=== PATIENT | female | born 1995 | race Caucasian/White ===

== ENCOUNTER 2017-04-25 17:07 | Observation (INO) | payer BC ==
--- NOTE | 2017-04-25 17:18 | EDM.PDOC ---
<Scooter Cristobal - Last Filed: 04/25/17 21:07> ED HPI GENERAL MEDICAL PROBLEM - General Chief Complaint: Abdominal Pain Stated Complaint: SEVERE ABDOMANAL PAIN Time Seen by Provider: 04/25/17 17:17 - History of Present Illness INITIAL COMMENTS - FREE TEXT/NARRATIVE: 22-year-old female presents emergency room with abdominal pain. This pain started this morning more severe than normal. Yesterday she had some increasing pain but seemed to improve last evening. Today the pain worsened she' s had 2 vomiting episodes. Yesterday she had a stool slightly looser than normal not mucousy or bloody but she wouldn't call it diarrhea. Patient denies any fevers or chills. Patient has had stomach problems she response to a gluten- free diet but blood tests did not necessarily confirm celiac disease. The patient had her gallbladder removed at a young age. She had a colonoscopy and EGD done this last summer according to the patient the biopsies were normal but some of the tissue looked abnormal during the endoscopy Abdomen Pain Score (Numeric/FACES): 9 - Related Data Allergies Allergy/AdvReac Type Severity Reaction Status Date / Time cefaclor [From Ceclor] Allergy Hives Verified 04/25/17 17:19 Sulfa (Sulfonamide Allergy Hives Verified 04/25/17 17:19 Antibiotics) sulfamethoxazole Allergy Hives Verified 04/25/17 17:19 [From Bactrim] trimethoprim [From Bactrim] Allergy Hives Verified 04/25/17 17:19 Home Meds: Home Meds Control 1 tab PO DAILY 04/25/17 [History] ED ROS GENERAL - Review of Systems Review Of Systems: See Below Constitutional: Reports: Chills. Denies: Fever HEENT: Reports: No Symptoms Respiratory: Reports: No Symptoms Cardiovascular: Reports: No Symptoms GI/Abdominal: Reports: Abdominal Pain, Nausea, Vomiting. Denies: Constipation, Diarrhea : Denies: Dysuria, Frequency Musculoskeletal: Reports: No Symptoms Skin: Reports: No Symptoms Neurological: Reports: No Symptoms Psychiatric: Reports: Anxiety. Denies: Mood Lability, Suicidal Ideation ED EXAM, GI/ABD - Physical Exam Exam: See Below Exam Limited By: No Limitations General Appearance: Mild Distress (The discomfort) Respiratory/Chest: No Respiratory Distress, Normal Breath Sounds GI/Abdominal: Hypoactive Bowel Sounds (Her bowel sounds are slightly diminished however she's been pressing on her abdomen prior to the exam), Other (Patient has significant tenderness in the epigastric region to a lesser degree in the right and left upper quadrants no right lower quadrant discomfort no left lower quadrant discomfort she has some periumbilical discomfort). No: Distention, Guarding, Rebound, Rigidity Back Exam: Normal Inspection. No: CVA Tenderness (L), CVA Tenderness (R) Extremities: Normal Inspection, No Pedal Edema Neurological: Alert, Oriented, Normal Cognition Psychiatric: Normal Affect Course - Vital Signs Last Recorded V/S: Last Vital Signs Temp 97.7 F 04/25/17 17:25 Pulse 59 L 04/25/17 17:25 Resp 20 04/25/17 17:25 BP 126/81 04/25/17 17:25 Pulse Ox 100 04/25/17 17:25 - Orders/Labs/Meds Orders: Active Orders 24 hr Category Date Time Status Abdomen Pelvis w Cont [CT] Stat Exams 04/25/17 19:52 Taken Sodium Chloride 0.9% [Normal Saline] 1,000 ml Med 04/25/17 23:21 Active IV ONETIME Sodium Chloride 0.9% [Normal Saline] 1,000 ml Med 04/25/17 23:27 Active IV ONETIME Sodium Chloride 0.9% [Saline Flush] Med 04/25/17 20:06 Active 10 ml FLUSH ONETIME PRN Medication Orders Sodium Chloride (Normal Saline) 1,000 mls @ 1,000 mls/hr IV ONETIME ONE Stop: 04/26/17 00:20 Last Admin: 04/25/17 23:27 Dose: 1,000 mls/hr Sodium Chloride (Normal Saline) 1,000 mls @ 1,000 mls/hr IV ONETIME ONE Stop: 04/26/17 00:26 Sodium Chloride (Saline Flush) 10 ml FLUSH ONETIME PRN PRN Reason: IV FLUSH Last Admin: 04/25/17 21:28 Dose: 10 ml Labs: Laboratory Tests 04/25/17 04/25/17 04/25/17 Range/Units 17:20 17:20 18:30 WBC 11.07 H (3.98-10.04) K/mm3 RBC 5.06 (3.98-5.22) M/mm3 Hgb 15.6 (11.2-15.7) gm/L Hct 45.6 H (34.1-44.9) % MCV 90.1 (79.4-94.8) fl MCH 30.8 (25.6-32.2) pg MCHC 34.2 (32.2-35.5) g/dl RDW Std Deviation 40.8 (36.4-46.3) fL Plt Count 263 (182-369) K/mm3 MPV 10.4 (9.4-12.3) fl Neutrophils % (Manual) 65 H (40-60) % Band Neutrophils % 0 (0-10) % Lymphocytes % (Manual) 26 (20-40) % Atypical Lymphs % 0 % Monocytes % (Manual) 6 (2-10) % Eosinophils % (Manual) 3 (0.7-5.8) % Basophils % (Manual) 0 L (0.1-1.2) Platelet Estimate Adequate RBC Morph Comment Normal Sodium 138 (136-145) mEq/L Potassium 3.2 L (3.5-5.1) mEq/L Chloride 101 (98-107) mEq/L Carbon Dioxide 30 (21-32) mEq/L Anion Gap 10.2 (5-15) BUN 12 (7-18) mg/dL Creatinine 1.1 H (0.55-1.02) mg/dL Est Cr Clr Drug Dosing 77.55 mL/min Estimated GFR (MDRD) > 60 (>60) mL/min BUN/Creatinine Ratio 10.9 L (14-18) Glucose 105 (74-106) mg/dL Calcium 9.3 (8.5-10.1) mg/dL Total Bilirubin 0.3 (0.2-1.0) mg/dL AST 22 (15-37) U/L ALT 32 (14-59) U/L Alkaline Phosphatase 107 (46-116) U/L Total Protein 8.2 (6.4-8.2) g/dl Albumin 4.2 (3.4-5.0) g/dl Globulin 4.0 gm/dL Albumin/Globulin Ratio 1.1 (1-2) Lipase 129 (73-393) U/L Urine Color (Yellow) Urine Appearance (Clear) Urine pH (5.0-8.0) Ur Specific [place] (1.005-1.030) Urine Protein (Negative) Urine Glucose (UA) (Negative) Urine Ketones (Negative) Urine Occult Blood (Negative) Urine Nitrite (Negative) Urine Bilirubin (Negative) Urine Urobilinogen (0.2-1.0) Ur Leukocyte Esterase (Negative) Urine RBC (0-5) /hpf Urine WBC (0-5) /hpf Ur Epithelial Cells (0-5) /hpf Amorphous Sediment (NOT SEEN) /hpf Urine Bacteria (FEW) /hpf Urine Mucus (FEW) /hpf Urine HCG, Qual Negative (NEGATIVE) 04/25/17 Range/Units 18:30 WBC (3.98-10.04) K/mm3 RBC (3.98-5.22) M/mm3 Hgb (11.2-15.7) gm/L Hct (34.1-44.9) % MCV (79.4-94.8) fl MCH (25.6-32.2) pg MCHC (32.2-35.5) g/dl RDW Std Deviation (36.4-46.3) fL Plt Count (182-369) K/mm3 MPV (9.4-12.3) fl Neutrophils % (Manual) (40-60) % Band Neutrophils % (0-10) % Lymphocytes % (Manual) (20-40) % Atypical Lymphs % % Monocytes % (Manual) (2-10) % Eosinophils % (Manual) (0.7-5.8) % Basophils % (Manual) (0.1-1.2) Platelet Estimate RBC Morph Comment Sodium (136-145) mEq/L Potassium (3.5-5.1) mEq/L Chloride (98-107) mEq/L Carbon Dioxide (21-32) mEq/L Anion Gap (5-15) BUN (7-18) mg/dL Creatinine (0.55-1.02) mg/dL Est Cr Clr Drug Dosing mL/min Estimated GFR (MDRD) (>60) mL/min BUN/Creatinine Ratio (14-18) Glucose (74-106) mg/dL Calcium (8.5-10.1) mg/dL Total Bilirubin (0.2-1.0) mg/dL AST (15-37) U/L ALT (14-59) U/L Alkaline Phosphatase (46-116) U/L Total Protein (6.4-8.2) g/dl Albumin (3.4-5.0) g/dl Globulin gm/dL Albumin/Globulin Ratio (1-2) Lipase (73-393) U/L Urine Color Light yellow (Yellow) Urine Appearance Clear (Clear) Urine pH 8.5 H (5.0-8.0) Ur Specific [place] 1.015 (1.005-1.030) Urine Protein Negative (Negative) Urine Glucose (UA) Negative (Negative) Urine Ketones Negative (Negative) Urine Occult Blood Negative (Negative) Urine Nitrite Negative (Negative) Urine Bilirubin Negative (Negative) Urine Urobilinogen 0.2 (0.2-1.0) Ur Leukocyte Esterase Trace H (Negative) Urine RBC 0-5 (0-5) /hpf Urine WBC 0-5 (0-5) /hpf Ur Epithelial Cells 5-10 H (0-5) /hpf Amorphous Sediment Few H (NOT SEEN) /hpf Urine Bacteria Moderate H (FEW) /hpf Urine Mucus Few (FEW) /hpf Urine HCG, Qual (NEGATIVE) Meds: Medications Generic Name Dose Route Start Last Admin Trade Name Freq PRN Reason Stop Dose Admin Sodium Chloride 1,000 mls @ 1,000 mls/hr 04/25/17 23:21 04/25/17 23:27 Normal Saline IV 04/26/17 00:20 1,000 mls/hr ONETIME ONE Administration Sodium Chloride 1,000 mls @ 1,000 mls/hr 04/25/17 23:27 Normal Saline IV 04/26/17 00:26 ONETIME ONE Sodium Chloride 10 ml 04/25/17 20:06 04/25/17 21:28 Saline Flush FLUSH 10 ml ONETIME PRN Administration IV FLUSH Discontinued Medications Generic Name Dose Route Start Last Admin Trade Name Freq PRN Reason Stop Dose Admin Al Hydroxide/Mg Hydroxide 30 0 ml 04/25/17 17:56 04/25/17 18:25 ml/ Lidocaine HCl 15 ml PO 04/25/17 17:57 45 ml ONETIME ONE Administration Diatrizoate Meglum/Diatrizoate Sod 120 ml 04/25/17 20:06 04/25/17 21:27 Gastrografin 37% PO 04/25/17 20:07 90 ml ONETIME ONE Administration Hydromorphone HCl 0.5 mg 04/25/17 19:09 04/25/17 19:10 Dilaudid IVPUSH 04/25/17 19:10 0.5 mg ONETIME STA Administration Hydromorphone HCl Confirm 04/25/17 19:10 04/25/17 19:21 Dilaudid Administered 04/25/17 19:11 Not Given Dose 0.5 mg .ROUTE .STK-MED ONE Hydromorphone HCl 0.25 mg 04/25/17 19:52 04/25/17 20:08 Dilaudid IVPUSH 04/25/17 19:53 0.25 mg ONETIME ONE Administration Hydromorphone HCl 1 mg 04/25/17 21:42 04/25/17 21:48 Dilaudid IVPUSH 04/25/17 21:43 1 mg ONETIME ONE Administration Hyoscyamine 0.125 mg 04/25/17 18:45 04/25/17 18:49 Hyomax-Sl SL 04/25/17 18:46 0.125 mg ONETIME ONE Administration Sodium Chloride 1,000 mls @ 1,000 mls/hr 04/25/17 22:16 04/25/17 22:19 Normal Saline IV 04/25/17 23:15 1,000 mls/hr ONETIME ONE Administration Iopamidol 100 ml 04/25/17 20:06 04/25/17 21:28 Isovue-300 (61%) IVPUSH 04/25/17 20:07 80 ml ONETIME ONE Administration Metoclopramide HCl 10 mg 04/25/17 22:44 04/25/17 22:49 Reglan IVPUSH 04/25/17 22:45 10 mg ONETIME ONE Administration Ondansetron HCl 4 mg 04/25/17 17:56 04/25/17 18:00 Zofran IVPUSH 04/25/17 17:57 4 mg ONETIME ONE Administration Ondansetron HCl 4 mg 04/25/17 21:18 04/25/17 21:38 Zofran IVPUSH 04/25/17 21:19 4 mg ONETIME ONE Administration - Re-Assessments/Exams Free Text/Narrative Re-Assessment/Exam: 04/25/17 19:57 Patient had no improvement with the GI cocktail we tried Levsin this did not help. She had some improvement with Dilaudid but didn't really like to wait made her feel however we'll give a second dose of Dilaudid 0.25 initially she received 0.5 mg labs reviewed white count is 11,065% segs and no bands CBC is otherwise normal chemistry show potassium little low at 3.2 be ON 12 creatinine 1.1 urinalysis hCG is negative trace leukocyte Estrace microscopic shows moderate bacteria 5-10 epithelial cells 0-5 wbc's 0-5 RBCs this is probably a contaminated specimen at this point we'll proceed with a CAT scan after discussing the pros and cons of waiting with the patient. However this pain is much worse than anything she has had. Repeat abdominal exam a few minutes ago shows good bowel sounds significant discomfort in the epigastric and left upper quadrant milder discomfort in the right upper quadrant. 04/25/17 21:07 We'll give another dose of Zofran the patient vomited up a bunch of contrast a few minutes ago. She still working on a half a bottle. At this point I'm return the patient over to Dr. Irvin with changes shift further evaluation and disposition per Dr. Irvin. Departure - Departure Disposition: Refer to Observation Clinical Impression: Gastroenteritis Abdominal pain Qualifiers: Abdominal location: generalized Qualified Code(s): R10.84 - Generalized abdominal pain Vomiting Qualifiers: Vomiting type: unspecified Vomiting Intractability: non-intractable Nausea presence: with nausea Qualified Code(s): R11.2 - Nausea with vomiting, unspecified - Discharge Information Forms: ED Department Discharge - My Orders Last 24 Hours: My Active Orders 04/25/17 23:21 Sodium Chloride 0.9% [Normal Saline] 1,000 ml IV ONETIME 04/25/17 23:27 Sodium Chloride 0.9% [Normal Saline] 1,000 ml IV ONETIME - Assessment/Plan Last 24 Hours: My Active Orders 04/25/17 23:21 Sodium Chloride 0.9% [Normal Saline] 1,000 ml IV ONETIME 04/25/17 23:27 Sodium Chloride 0.9% [Normal Saline] 1,000 ml IV ONETIME <Delgado Irvin - Last Filed: 04/25/17 23:48> Course - Re-Assessments/Exams Free Text/Narrative Re-Assessment/Exam: 04/25/17 23:[address] Cristobal. The CT showed nonspecific changes of small pelvic fluid collection and scattered loops of small bowel with fluid accumulation. Infectious enteritis should remain in the differential. I examined the patient she still had pain. She has moderate generalized pain on exam. I gave her more dilaudid and she vomited after that. I gave her reglan to help with the nausea. She does not do well with pain meds. I ordered some IV fluids of NS. The first liter is in and she is a little better but not good enough to go home. I feel she needs to be admitted. I called Dr Thao and he agreed to the admission. Departure - Departure Time of Disposition: 23:50 Condition: Good
[2017-04-25] MEDS ORDERED: Ondansetron 4 MG/2 ML SDV IVPUSH ONE ×2 (17:56→21:18)
[2017-04-25] MEDS ORDERED: Alum Hydrox/Mag Hydrox/Simeth 30 ML, Lidocaine 2% 15 ML PO ONE ×2 (17:56)
--- NOTE | 2017-04-25 18:41 | CR ---
Abdomen: Supine and upright views of the abdomen were obtained. Scattered gas within small bowel and colon is seen. This appears within normal limits at this time. No free air is seen. Surgical clips are seen from prior cholecystectomy. Bony structures are unremarkable. Impression: 1. Incidental findings. Diagnostic code #2
[2017-04-25] MEDS ORDERED: Hyoscyamine 0.125 MG Tab.SL SL ONE (18:45)
[2017-04-25] MEDS ORDERED: HYDROmorphone 0.5 MG/0.5 ML Syringe IVPUSH STA (19:09)
[2017-04-25] MEDS ORDERED: HYDROmorphone 0.5 MG/0.5 ML Syringe ONE (19:10)
[2017-04-25] MEDS ORDERED: HYDROmorphone 0.5 MG/0.5 ML Syringe IVPUSH ONE (19:52)
[2017-04-25] MEDS ORDERED: Iopamidol 612 MG/ML 100 ML Bottle IVPUSH ONE (20:06)
[2017-04-25] MEDS ORDERED: Sodium Chloride 0.9% 10 ML Syringe FLUSH PRN (20:06)
[2017-04-25] MEDS ORDERED: Diatrizoate Meglumine/Diatrizoate Sodium 37% 120 ML Bottle PO ONE (20:06)
[2017-04-25] MEDS ORDERED: HYDROmorphone 1 MG/ML Syringe IVPUSH ONE (21:42)
[2017-04-25] MEDS ORDERED: Sodium Chloride 0.9% 1,000 ML IV ONE ×3 (22:16→23:27)
[2017-04-25] MEDS ORDERED: Metoclopramide 10 MG/2 ML SDV IVPUSH ONE (22:44)
[2017-04-26] MEDS ORDERED: diphenhydrAMINE 50 MG/ML SDV IVPUSH ONE (00:53)
[2017-04-26] MEDS ORDERED: Sodium Chloride 0.9% 1,000 ML IV ONE (00:54)
[2017-04-26] MEDS ORDERED: Ondansetron 4 MG/2 ML SDV IVPUSH PRN (01:56)
[2017-04-26] MEDS ORDERED: Prochlorperazine 10 MG in Sodium Chloride 0.9% 50 ML IV PRN (01:57)
[2017-04-26] MEDS: NS + KCl 20mEq/L 1,000 ML IV SCH ×3 (02:33→13:21)
[2017-04-26] MEDS ORDERED: Acetaminophen 325 MG Tab PO PRN (06:51)
[2017-04-26] MEDS ORDERED: Promethazine 12.5 MG in Sodium Chloride 0.9% 50 ML IV PRN (06:51)
[2017-04-26] MEDS ORDERED: HYDROmorphone 1 MG/ML Syringe IVPUSH PRN (06:51)
[2017-04-26] MEDS ORDERED: Polyethylene Glycol 3350 Powder 17 GM Packet PO PRN (06:51)
[2017-04-26] MEDS ORDERED: Temazepam 15 MG Cap PO PRN (06:51)
[2017-04-26] MEDS ORDERED: LORazepam 2 MG/ML MDV IV PRN (06:51)
[2017-04-26] MEDS ORDERED: Bisacodyl 5 MG Tab PO PRN (06:51)
[2017-04-26] MEDS ORDERED: Acetaminophen/HYDROcodone 325-5 MG Tab PO PRN (06:51)
[2017-04-26] MEDS ORDERED: Albuterol/Ipratropium 3.0-0.5 MG/3 ML Neb Soln NEB PRN (06:51)
--- NOTE | 2017-04-26 06:51 | PCM.HP ---
H&P History of Present Illness - General Date of Service: 04/26/17 Admit Problem/Dx: Admission Diagnosis/Problem Admission Diagnosis/Problem Gastroenteritis Source of Information: Patient, Family, Provider, RN Notes Reviewed History Limitations: Reports: No Limitations - History of Present Illness Initial Comments - Free Text/Narative: This is a 22-year-old fairly healthy white female with no past medical history who comes to the emergency department with complains of severe abdominal pain that started yesterday morning. Her chief complaint is associated with nausea and vomiting. She also reports loose stool that is non-bloody and without mucus. Patient carries a history of chronic diarrhea. It is unclear however if she has a history of IBD/IBS or Celiac Disease but she is on gluten-free diet. Patient had EGD and colonoscopy done last July. The results were benign according to patient. She also had her gallbladder taken out right about the same period. She followed Dr. Ron for her GI complaints but has not gone in to follow-up with him since then. Her initial workup in the emergency department shows a CBC remarkable for WBC of 11.7, hematocrit of 45.6, neutrophils of 65%. Her chemistry is remarkable for potassium of 3.2, creatinine of 1.1. CRP is less than 0.2. UA is unimpressive for urinary tract infection. Abdominal x-ray shows no acute abnormal finding. Abdominal CT scan with contrast report reads mild amount of fluid within small bowel that is nonspecific and cannot exclude any symptoms of enteritis. Previous Cholecystectomy. Mild intrahepatic biliary duct dilatation. And free fluid within the pelvis most likely physiologic Patient was admitted last night for continued observation related to her abdominal pain. 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 but grew out of Gastrointestinal History: Reports: Irritable Bowel Syndrome, Other (See Below) Other Gastrointestinal History: celiac - Infectious Disease History Infectious Disease History: Reports: Chicken Pox - Past Surgical History HEENT Surgical History: Reports: Adenoidectomy, Tonsillectomy Respiratory Surgical History: Reports: None GI Surgical History: Reports: Cholecystectomy Social & Family History - Family History Family Medical History: Noncontributory - Tobacco Use Smoking Status *Q: Never Smoker Second Hand Smoke Exposure: No - Caffeine Use Caffeine Use: Reports: Coffee, Tea Other Caffeine Use: one a day - Recreational Drug Use Recreational Drug Use: No H&P Review of Systems - Review of Systems: Review Of Systems: See Below General: Reports: Chills, Weakness, Decreased Appetite. Denies: Fever HEENT: Reports: No Symptoms Pulmonary: Denies: Shortness of Breath Cardiovascular: Denies: Chest Pain, Palpitations, Dyspnea on Exertion, Edema, Lightheadedness Gastrointestinal: Reports: Abdominal Pain, Decreased Appetite, Flatus, Nausea. Denies: Vomiting Genitourinary: Reports: No Symptoms Musculoskeletal: Reports: No Symptoms Skin: Denies: Jaundice, Rash Psychiatric: Reports: Anxiety. Denies: Depression, Agitation, Hallucinations Neurological: Denies: Difficulty Walking, Weakness, Gait Disturbance Hematologic/Lymphatic: Reports: No Symptoms Immunologic: Reports: No Symptoms Exam - Exam Exam: See Below - Vital Signs Vital Signs: Last Vital Signs Temp 36.5 C 04/25/17 17:25 Pulse 59 L 04/25/17 17:25 Resp 20 04/25/17 17:25 BP 126/81 04/25/17 17:25 Pulse Ox 100 04/25/17 17:25 Weight: 61.507 kg - Exam General: Alert, Oriented, Cooperative, Mild Distress HEENT: Conjunctiva Clear, EACs Clear, EOMI, Hearing Intact, Mucosa Moist & [place] , Nares Patent, Normal Nasal Septum, Posterior Pharynx Clear, Pupils Equal, Pupils Reactive, TMs Clear Neck: Supple, Trachea Midline, +2 Carotid Pulse wo Bruit, Full Range of Motion Lungs: Clear to Auscultation, Normal Respiratory Effort Cardiovascular: Regular Rate, Regular Rhythm Abdomen: Soft, Tenderness, Hypoactive Bowel Sounds (right side). No: Organomegaly, Peritoneal Signs, Distention, Guarding, Rigidity, Rebound (Female) Exam: Deferred Rectal (Female) Exam: Deferred Back Exam: Normal Inspection, Decreased Range of Motion Extremities: Normal Inspection, Normal Pulses Peripheral Pulses: 3+: Posterior Tibial (L), Posterior Tibial (R), Dorsalis Pedis (L), Dorsalis Pedis (R) Skin: Warm, Dry, Intact Neuro Extensive - Mental Status: Oriented x3, Normal Cognition, Memory Intact Neuro Extensive - Motor, Sensory, Reflexes: CN II-XII Intact (limited but intact ), Normal Gait Psychiatric: Alert, Normal Affect, Normal Mood - Patient Data Result Diagrams: 04/25/17 17:20 04/25/17 17:20 *Q Meaningful Use (ADM) - VTE *Q VTE Criteria *Q: - Stroke *Q Stroke Criteria *Q: - AMI *Q AMI Criteria *Q: Problem List Initiated/Reviewed/Updated: Yes Orders Last 24hrs: Active Orders 24 hr Category Date Time Status Bedrest [RC] ASDIRECTED Care 04/26/17 01:47 Active NPO [Nothing Per Oral Diet] [DIET] Diet 04/26/17 Breakfast Active NS + KCl 20mEq/L [Normal Saline with 20 mEq KCl] 1,000 Med 04/26/17 02:15 Active ml IV ASDIRECTED Ondansetron [Zofran] Med 04/26/17 01:56 Active 4 mg IVPUSH Q6H PRN Prochlorperazine [Compazine] 10 mg Med 04/26/17 01:57 Active Sodium Chloride 0.9% [Normal Saline] 50 ml IV Q6H Code Status [Resuscitation Status] Routine Resus Stat 04/26/17 01:43 Ordered Medication Orders Prochlorperazine Edisylate 10 (mg/ Sodium Chloride) 52 mls @ 150 mls/hr IV Q6H PRN PRN Reason: Nausea/Vomiting Potassium Chloride/Sodium Chloride (Normal Saline With 20 Meq Kcl) 1,000 mls @ 200 mls/hr IV ASDIRECTED SELAM Last Admin: 04/26/17 02:33 Dose: 200 mls/hr Ondansetron HCl (Zofran) 4 mg IVPUSH Q6H PRN PRN Reason: Nausea Sodium Chloride (Saline Flush) 10 ml FLUSH ONETIME PRN PRN Reason: IV FLUSH Last Admin: 04/25/17 21:28 Dose: 10 ml Assessment/Plan Comment:: Assessment/Plan: Acute: Enteritis - Infectious vs Inflammatory - past medical hx is not clear at this time - Will start IV Levaquin/Zosyn and Prednisone - Celiac Diet Abdominal Pain - Moderate now - CT scan shows enteritis: infectious vs inflammatory - She is on gluten diet - She had EGD and Colonoscopy in the past w/ benign result - Unsure if she has IDB/IBS +/- Celiac Disease - Received initial treatment in ED - She is responding to dilaudid Nausea/Vomiting - 2/2 Above - PRN meds for symptomatic control Hx/o IBD/BDS vs Celiac Disease - No supported documentation - Seen Dr. Ron in the past - Will try to reach him S/p Cholecystectomy Plan: Admitted for Med-Surg floor last night Routine AM Labs Dietary consult Will try to reach Dr. Ron SW/CM for d/c planning
[2017-04-26] MEDS ORDERED: hydrALAZINE 20 MG/ML SDV IVPUSH PRN (06:58)
[2017-04-26] MEDS ORDERED: Metoprolol Tartrate 5 MG/5 ML SDV IVPUSH PRN (06:58)
[2017-04-26] MEDS ORDERED: HYDROmorphone 0.5 MG/0.5 ML Syringe IVPUSH PRN (07:03)
[2017-04-26 07:31] VITALS: BP 100/59
[2017-04-26] MEDS: metroNIDAZOLE/Normal Saline 500 MG in Premix Bag 1 BAG IV SCH ×2 (08:09→15:13)
[2017-04-26] MEDS: Saccharomyces Boulardii (Probiotic) 250 MG Cap PO SCH ×2 (08:10→15:14)
--- NOTE | 2017-04-26 08:31 | CT ---
CT abdomen and pelvis Technique: Multiple axial sections were obtained from above the dome of the diaphragm inferiorly through the pubic symphysis. Intravenous and oral contrast was utilized. Comparison: No previous study is available. Findings: Liver shows no focal parenchymal abnormality. Spleen appears within normal limits. No pericardial thickening is seen. Slight intrahepatic biliary duct dilatation is seen most likely residual from prior cholecystectomy. Kidneys shows contrast enhancement without hydronephrosis or mass. Pancreas appears within normal limits. Adrenal glands show no nodule. Aorta shows no aneurysmal dilatation. No bowel dilatation is seen. There is some fluid being seen within bowel. No bowel wall thickening is identified. There is a small amount of fluid within the pelvis which is most likely physiologic. No pelvic mass or adenopathy is seen. No free fluid is seen. Appendix is not seen with certainty. No inflammatory change is seen. Delayed images show contrast within the distal ureters and within the bladder. Bone window settings were reviewed which appear within normal limits. Impression: 1. Mild amount of fluid within small bowel which is nonspecific but please exclude any symptoms of enteritis. 2. Previous cholecystectomy. Mild intrahepatic biliary duct dilatation is seen likely residual from prior cholecystectomy. 3. Free fluid within the pelvis most likely physiologic. Diagnostic code #3 Agree with preliminary report issued by [facility] ([facility] preliminary report dictated on 04/25/17, 11:03 PM Central Time)
[2017-04-26] MEDS ORDERED: Levofloxacin/Dextrose 5%-Water 500 MG in Premix Bag 1 BAG IV SCH (09:00)
[2017-04-26] MEDS ORDERED: Scopolamine 1.5 MG Transdermal Patch TOP ONE (14:24)
--- NOTE | 2017-04-26 14:32 | PCM.DCSUM1 ---
Discharge Summary - Hospital Course Brief History: This is a 22-year-old fairly healthy white female with no past medical history who comes to the emergency department with complains of severe abdominal pain associatd with nausea and vomiting; was admitted for observation for medical management. - Discharge Data Discharge Date: 04/26/17 Discharge Disposition: Home, Self-Care 01 Condition: Good - Patient Summary/Data Operative Procedure(s) Performed: None Complications: None Consults: Consultations 04/26/17 06:53 Consult to Case Management [CONS] Routine Consult to Mental Health Consultant [CONS] Routine Consult to Allocations Clerk [CONS] Routine Hospital Course: She was primarily admitted for medical management of her abdominal pain. She carried a history of chronic diarrhea. However it is unclear whether she had history of IBD, IBS or celiac disease. She was seen in the past by Dr. Ron, GI specialist in [facility] for her symptoms. She had also undergone endoscopy and EGD back last year but with benign findings. Today family had requested for transfer to [facility]. I called [email or web address] [place] but it was felt she could be managed medically here locally. I offered transfer to [place] but they refused it. Sometime this afternoon patient left AMA. - Discharge Plan Home Medications: Home Meds Control 1 applic VAG ASDIRECTED 04/25/17 [History] Referrals: PCP,Not In Area [Primary Care Provider] - - Discharge Summary/Plan Comment DC Time >30 min.: No Discharge Summary/Plan Comment: Patient left AMA - General Info Date of Service: 04/26/17 Admission Dx/Problem (Free Text: Admission Diagnosis/Problem Admission Diagnosis/Problem Gastroenteritis Subjective Update: Follow Up - Review of Systems Systems Review Comment: Patient left AMA. - Patient Data Vitals - Most Recent: Last Vital Signs Temp 36.7 C 04/26/17 07:29 Pulse 60 04/26/17 07:29 Resp 14 04/26/17 07:29 BP 100/59 L 04/26/17 07:29 Pulse Ox 100 04/26/17 07:29 Weight - Most Recent: 61.507 kg I&O - Last 24 hours: Intake & Output 04/25/17 04/26/17 04/26/17 22:59 06:59 14:59 Intake Total 1297 Balance 1297 Lab Results - Last 24 hrs: Laboratory Results - last 24 hr 04/26/17 Range/Units 07:15 C-Reactive Protein < 0.2 (<1.0) mg/dL Med Orders - Current: Current Medications Acetaminophen (Tylenol) 650 mg PO Q4H PRN PRN Reason: Pain (Mild 1-3)/fever Hydrocodone Bitart/Acetaminophen ([place] 325-5 Mg) 1 tab PO Q4H PRN PRN Reason: Pain (moderate 4-6) Last Admin: 04/26/17 13:21 Dose: 1 tab Albuterol/Ipratropium (Duoneb 3.0-0.5 Mg/3 Ml) 3 ml NEB Q4H PRN PRN Reason: Shortness Of Breath/wheezing Bisacodyl (Dulcolax) 5 mg PO DAILY PRN PRN Reason: Constipation Hydralazine HCl (Apresoline) 20 mg IVPUSH Q4H PRN PRN Reason: Hypertension Hydromorphone HCl (Dilaudid) 0.25 mg IVPUSH Q2H PRN PRN Reason: Pain (severe 7-10) Prochlorperazine Edisylate 10 (mg/ Sodium Chloride) 52 mls @ 150 mls/hr IV Q6H PRN PRN Reason: Nausea/Vomiting Potassium Chloride/Sodium Chloride (Normal Saline With 20 Meq Kcl) 1,000 mls @ 200 mls/hr IV ASDIRECTED [facility] Last Admin: 04/26/17 13:21 Dose: 200 mls/hr Promethazine HCl 12.5 mg/ (Sodium Chloride) 50.5 mls @ 100 mls/hr IV Q6H PRN PRN Reason: Nausea/Vomiting Levofloxacin/Dextrose 500 mg/ (Premix) 100 mls @ 100 mls/hr IV Q24H [facility] Last Admin: 04/26/17 09:20 Dose: 100 mls/hr Metronidazole 500 mg/ Premix 100 mls @ 100 mls/hr IV Q8H [facility] Last Admin: 04/26/17 08:09 Dose: 100 mls/hr Lorazepam (Ativan) 1 mg IV Q6H PRN PRN Reason: Anxiety Magnesium Sulfate (Pharmacy To Dose - Magnesium Replacement) 0 dose .XX ASDIRECTED PRN PRN Reason: RX TO MONITOR MAG LEVELS Metoprolol Tartrate (Lopressor) 5 mg IVPUSH Q4H PRN PRN Reason: Tachycardia Miscellaneous Information (Remove Patch) 0 ea TRDERM ONETIME ONE Stop: 04/29/17 14:31 Ondansetron HCl (Zofran) 4 mg IVPUSH Q6H PRN PRN Reason: Nausea Polyethylene Glycol (Miralax) 17 gm PO DAILY PRN PRN Reason: Constipation Potassium Chloride (Pharmacy To Dose - Potassium Replacement) 0 dose .XX ASDIRECTED PRN PRN Reason: RX TO MONITOR K LEVELS Prednisone (Prednisone) 60 mg PO DAILY SELAM Saccharomyces Boulardii (Florastor) 250 mg PO TID SELAM Last Admin: 04/26/17 08:10 Dose: 250 mg Senna/Docusate Sodium (Senna Plus) 1 tab PO BID PRN PRN Reason: Constipation Last Admin: 04/26/17 13:21 Dose: 1 tab Sodium Chloride (Saline Flush) 10 ml FLUSH ONETIME PRN PRN Reason: IV FLUSH Last Admin: 04/25/17 21:28 Dose: 10 ml Temazepam (Restoril) 15 mg PO BEDTIME PRN PRN Reason: Sleep Discontinued Medications Al Hydroxide/Mg Hydroxide 30 (ml/ Lidocaine HCl 15 ml) 0 ml PO ONETIME ONE Stop: 04/25/17 17:57 Last Admin: 04/25/17 18:25 Dose: 45 ml Diatrizoate Meglum/Diatrizoate Sod (Gastrografin 37%) 120 ml PO ONETIME ONE Stop: 04/25/17 20:07 Last Admin: 04/25/17 21:27 Dose: 90 ml Diphenhydramine HCl (Benadryl) 25 mg IVPUSH ONETIME ONE Stop: 04/26/17 00:54 Last Admin: 04/26/17 01:25 Dose: 25 mg Hydromorphone HCl (Dilaudid) 0.5 mg IVPUSH ONETIME STA Stop: 04/25/17 19:10 Last Admin: 04/25/17 19:10 Dose: 0.5 mg Hydromorphone HCl (Dilaudid) Confirm Administered Dose 0.5 mg .ROUTE .STK-MED ONE Stop: 04/25/17 19:11 Last Admin: 04/25/17 19:21 Dose: Not Given Hydromorphone HCl (Dilaudid) 0.25 mg IVPUSH ONETIME ONE Stop: 04/25/17 19:53 Last Admin: 04/25/17 20:08 Dose: 0.25 mg Hydromorphone HCl (Dilaudid) 1 mg IVPUSH ONETIME ONE Stop: 04/25/17 21:43 Last Admin: 04/25/17 21:48 Dose: 1 mg Hydromorphone HCl (Dilaudid) 0.25 mg IVPUSH Q2H PRN PRN Reason: Pain (severe 7-10) Hyoscyamine (Hyomax-Sl) 0.125 mg SL ONETIME ONE Stop: 04/25/17 18:46 Last Admin: 04/25/17 18:49 Dose: 0.125 mg Sodium Chloride (Normal Saline) 1,000 mls @ 1,000 mls/hr IV ONETIME ONE Stop: 04/25/17 23:15 Last Admin: 04/25/17 22:19 Dose: 1,000 mls/hr Sodium Chloride (Normal Saline) 1,000 mls @ 1,000 mls/hr IV ONETIME ONE Stop: 04/26/17 00:20 Last Admin: 04/25/17 23:27 Dose: 1,000 mls/hr Sodium Chloride (Normal Saline) 1,000 mls @ 1,000 mls/hr IV ONETIME ONE Stop: 04/26/17 00:26 Last Admin: 04/26/17 03:12 Dose: Not Given Sodium Chloride (Normal Saline) 1,000 mls @ 999 mls/hr IV ONETIME ONE Stop: 04/26/17 01:54 Last Admin: 04/26/17 01:26 Dose: 999 mls/hr Iopamidol (Isovue-300 (61%)) 100 ml IVPUSH ONETIME ONE Stop: 04/25/17 20:07 Last Admin: 04/25/17 21:28 Dose: 80 ml Metoclopramide HCl (Reglan) 10 mg IVPUSH ONETIME ONE Stop: 04/25/17 22:45 Last Admin: 04/25/17 22:49 Dose: 10 mg Ondansetron HCl (Zofran) 4 mg IVPUSH ONETIME ONE Stop: 04/25/17 17:57 Last Admin: 04/25/17 18:00 Dose: 4 mg Ondansetron HCl (Zofran) 4 mg IVPUSH ONETIME ONE Stop: 04/25/17 21:19 Last Admin: 04/25/17 21:38 Dose: 4 mg Scopolamine (Transderm-Scop) 1.5 mg TOP ONETIME ONE Stop: 04/26/17 14:25 - Exam Physical Findings Comments:: Unable to examine. Patient left AMA. *Q Meaningful Use (DIS) - VTE *Q VTE Criteria *Q: - Stroke *Q Stroke Criteria *Q: - AMI *Q AMI Criteria *Q:
[2017-04-27] MEDS ORDERED: predniSONE 20 MG Tab PO SCH (09:00)
== END 2017-04-26 15:16 | disposition home or self-care (01) ==
LOC: JD.ED 17:07 → UNDOADMOB 23:48 → MERGE 23:48 → JD.MS 23:48
PROVIDERS: ADMIT Internal Medicine; ATTEND Internal Medicine
DX: K52.9 Noninfective gastroenteritis and colitis, unspecified (principal); Z79.899 Other long term (current) drug therapy; Z88.1 Allergy status to other antibiotic agents; Z88.2 Allergy status to sulfonamides; Z90.49 Acquired absence of other specified parts of digestive tract; Z90.89 Acquired absence of other organs
CPT/HCPCS: 36415; 74020; 74177; 80053; 81001; 81025; 83690; 85025; 86140; 96361; 96374; 96375; 96376; 99285; A9270; J1170; J1200; J1956; J2405; J2765; J3480; J7040; J7050; Q9963; Q9967; 96365; 96367; 99284; G0378